=== PATIENT | male | born 1950 | race Caucasian/White ===

== ENCOUNTER → 2023-05-08 | Outpatient (CLI) | payer MEDICARE | END | disposition home or self-care (01) | LOC: RAH 16:11 | PROVIDERS: ATTEND Internal Medicine | DX: Z01.818 Encounter for other preprocedural examination (principal) | CPT/HCPCS: 71047 ==

== ENCOUNTER 2023-08-12 05:00 | Observation (INO) | payer MEDICARE ==
[2023-08-08 11:17] LABS: BASOPHILS # (AUTO) 0.05 K/uL (0.00-0.20); BASOPHILS % (AUTO) 0.8 % (0.0-5.0); EOSINOPHILS # (AUTO) 0.48 K/uL (0.00-0.70); EOSINOPHILS % (AUTO) 7.8 % (0.0-8.0); HEMATOCRIT 43.1 % (42-54); IMMATURE GRANULOCYTE ABSOLUTE 0.02 K/uL (0-1); LYMPHOCYTES # (AUTO) 1.3 K/uL (1.0-4.8); LYMPHOCYTES % (AUTO) 20.2 % (21.0-51.0); MEAN CORPUSCULAR HGB CONC 32.5 g/dL (32.0-36.0); MEAN CORPUSCULAR VOLUME 89.4 fL (79-99); MONOCYTES # (AUTO) 0.6 K/uL (0.1-1.0); MONOCYTES % (AUTO) 10.4 % (3.0-13.0); NEUTROPHILS # (AUTO) 3.7 K/uL (1.8-7.7); NEUTROPHILS % (AUTO) 60.5 % (40.0-77.0); PLATELET COUNT (AUTO) 270 K/uL (130-400); RED BLOOD CELL COUNT(AUTO) 4.82 MIL/uL (4.50-6.20); RED CELL DISTRIBUTION WIDTH 13.2 % (11.0-15.5); WHITE BLOOD COUNT (AUTO) 6.2 K/uL (4.8-10.8)
[2023-08-08 11:22] VITALS: BP 166/89; PULSE 71; RESP 18
[2023-08-08 11:33] LABS: ALBUMIN 3.5 g/dL (3.5-5.0); BILIRUBIN,TOTAL 0.5 mg/dL (0.2-1.0); CREATININE 1.2 mg/dL (0.5-1.3); POTASSIUM 4.3 mmol/L (3.5-5.1); TOTAL PROTEIN, SERUM 7.1 g/dL (6.0-8.3)
[2023-08-08 11:41] LABS: INR <= 0.93 (0.85-1.15); PROTHROMBIN TIME 10.6 SEC (9.6-11.6)
[2023-08-08 11:42] LABS: PARTIAL THROMBOPLASTIN TIME 30.2 SEC (26.3-35.5)
[~2023-08-12] VITALS: Ht 188 cm; Wt 97.3 kg
[2023-08-12] VITALS (21 sets, daily range): BP systolic 121–156; BP diastolic 68–87; PULSE 63–102; RESP 12–26; O2SAT 96
[~2023-08-12 05:00] MED LIST: AEC81 PO; BUPR-49 PO; FINA5TAB41 PO; LOSA50TA64 PO; TAMS-1 PO
[2023-08-12] MEDS ORDERED: FENTANYL CITRATE PF 50 MCG/1 ML 2ML VIAL ONE ×2 (07:45→08:45)
[2023-08-12] MEDS ORDERED: MIDAZOLAM HCL 1 MG/ML 2ML VIAL ONE (07:45)
[2023-08-12] MEDS ORDERED: DEXAMETHASONE SOD PHOSPHATE 10MG/ML 1ML VIAL ONE (07:46)
[2023-08-12] MEDS ORDERED: LIDOCAINE PF 100MG/5ML (2%) SYRINGE 5ML ONE (07:46)
[2023-08-12] MEDS ORDERED: ONDANSETRON 4MG INJ ONE (07:46)
[2023-08-12] MEDS: LACTATED RINGERS 1000ML 1,000 ML IV ONE (08:02)
[2023-08-12] MEDS ORDERED: PROPOFOL 10 MG/ML 20ML VIAL IV ONE (08:26)
[2023-08-12] MEDS ORDERED: ROCURONIUM BROMIDE 10MG/1ML 5ML VL ONE ×2 (08:26→09:23)
[2023-08-12] MEDS: CLINDAMYCIN IVPB 900MG/50ML 50 ML IV ONE (08:30)
[2023-08-12] MEDS: TRANEXAMIC ACID 1000MG/10ML ONE ×2 (08:40→10:31)
[2023-08-12] MEDS ORDERED: PHENYLEPHRINE HCL 10 MG/ML 1ML VIAL IV ONE (08:50)
[2023-08-12] MEDS: GENTAMICIN SULFATE 80 MG/2 ML VIAL ONE (09:25)
[2023-08-12] MEDS: 0.9%NACL 48.45 ML, ROPIVACAINE 0.5% 49.25ML, EPINEPH 0.5MG KETOROLAC 30MG,CLONIDINE 80MCG IV PRN (09:25)
[2023-08-12] MEDS: CEFAZOLIN SODIUM 1 GM VIAL ONE (09:25)
[2023-08-12] MEDS ORDERED: NEOSTIGMINE METHYLSULFATE 1MG/ML IV ONE (10:35)
[2023-08-12] MEDS ORDERED: GLYCOPYRROLATE 0.2 MG/ML 5 ML VIAL ONE (10:35)
[2023-08-12] MEDS: MEPERIDINE-PF 25 MG/ML SYG ONE ×2 (11:34→11:45)
[2023-08-12] MEDS ORDERED: MAG/ALUM/SIMETH 30 ML UDCUP PO PRN (13:00)
[2023-08-12] MEDS: 0.9%NACL 1000ML 1,000 ML IV SCH (13:00)
[2023-08-12] MEDS ORDERED: ACETAMINOPHEN 325 MG TAB PO SCH (13:00)
[2023-08-12] MEDS ORDERED: DIPHENHYDRAMINE HCL 25 MG CAPSULE PO PRN (13:00)
[2023-08-12] MEDS ORDERED: DIPHENHYDRAMINE HCL 25 MG CAPSULE PO SCH (13:00)
[2023-08-12] MEDS ORDERED: ONDANSETRON 4MG INJ IVP PRN (13:00)
[2023-08-12] MEDS ORDERED: DiphenhydrAMINE HCL 50 MG/ML VIAL IM PRN (13:00)
[2023-08-12] MEDS ORDERED: DIPHENOXYLATE HCL/ATROPINE 2.5/0.025 MG TAB PO PRN (13:00)
[2023-08-12] MEDS: CLINDAMYCIN IVPB 900MG/50ML IV SCH (13:00)
[2023-08-12] MEDS ORDERED: BENZOCAINE/MENTH/CETYLPYRD CL 1 EACH LOZENGE MM PRN (13:00)
[2023-08-12] MEDS ORDERED: LACTULOSE 20 GM/30 ML UDCUP PO PRN (13:00)
[2023-08-12] MEDS ORDERED: WARFARIN SODIUM 7.5 MG TAB PO SCH (13:00)
[2023-08-12] MEDS ORDERED: ACETAMINOPHEN 325 MG TAB PO PRN ×2 (13:00)
[2023-08-12] MEDS: CLINDAMYCIN IVPB 900MG/50ML 50 ML IV SCH (15:38)
[2023-08-12] MEDS: HYDROMORPH /0.9% NACL/PF PCA 50 ML IV PRN (15:40)
[2023-08-12] MEDS: LOSARTAN 50 MG TABLET PO SCH (21:37)
[2023-08-12] MEDS: TAMSULOSIN HCL 0.4 MG CAP.ER.24H PO SCH (21:37)
[2023-08-12] MEDS: BUPROPION HCL 150 MG TABLET.SA PO SCH (21:37)
[2023-08-12] MEDS: FINASTERIDE 5 MG TABLET PO SCH (21:37)
[2023-08-12] MEDS: WARFARIN SODIUM 7.5 MG TAB PO SCH (21:38)
[2023-08-13 04:07] VITALS: BP 127/64; PULSE 96; RESP 18
[2023-08-13 04:18] LABS: HEMATOCRIT 33.2 % (42-54); MEAN CORPUSCULAR HEMOGLOBIN 28.2 pg (27.0-33.0); MEAN CORPUSCULAR HGB CONC 32.5 g/dL (32.0-36.0); MEAN CORPUSCULAR VOLUME 86.7 fL (79-99); RED BLOOD CELL COUNT(AUTO) 3.83 MIL/uL (4.50-6.20); RED CELL DISTRIBUTION WIDTH 13.6 % (11.0-15.5); WHITE BLOOD COUNT (AUTO) 12.6 K/uL (4.8-10.8)
[2023-08-13 04:27] LABS: INR 1.06 (0.85-1.15); PROTHROMBIN TIME 12.4 SEC (9.6-11.6)
[2023-08-13 05:08] LABS: CREATININE 1.4 mg/dL (0.5-1.3); POTASSIUM 4.3 mmol/L (3.5-5.1)
[2023-08-13 07:21] LABS: BASOPHILS # (AUTO) 0.02 K/uL (0.00-0.20); BASOPHILS % (AUTO) 0.2 % (0.0-5.0); EOSINOPHILS # (AUTO) 0.02 K/uL (0.00-0.70); EOSINOPHILS % (AUTO) 0.2 % (0.0-8.0); HEMATOCRIT 33.5 % (42-54); IMMATURE GRANULOCYTE ABSOLUTE 0.06 K/uL (0-1); LYMPHOCYTES # (AUTO) 1.1 K/uL (1.0-4.8); LYMPHOCYTES % (AUTO) 10.5 % (21.0-51.0); MEAN CORPUSCULAR HEMOGLOBIN 28.6 pg (27.0-33.0); MEAN CORPUSCULAR HGB CONC 33.4 g/dL (32.0-36.0); MEAN CORPUSCULAR VOLUME 85.5 fL (79-99); MONOCYTES # (AUTO) 1.1 K/uL (0.1-1.0); MONOCYTES % (AUTO) 10.1 % (3.0-13.0); NEUTROPHILS # (AUTO) 8.5 K/uL (1.8-7.7); NEUTROPHILS % (AUTO) 78.4 % (40.0-77.0); PLATELET COUNT (AUTO) 246 K/uL (130-400); RED BLOOD CELL COUNT(AUTO) 3.92 MIL/uL (4.50-6.20); RED CELL DISTRIBUTION WIDTH 13.5 % (11.0-15.5); WHITE BLOOD COUNT (AUTO) 10.9 K/uL (4.8-10.8)
[2023-08-13 07:30] LABS: HEMOGLOBIN A1C 5.7 % (4.0-6.0)
[2023-08-13 07:37] LABS: ALBUMIN 2.8 g/dL (3.5-5.0); BILIRUBIN,TOTAL 0.4 mg/dL (0.2-1.0); CREATININE 1.3 mg/dL (0.5-1.3); MAGNESIUM 1.5 mg/dL (1.80-2.40); TOTAL PROTEIN, SERUM 5.9 g/dL (6.0-8.3)
[2023-08-13 08:00] VITALS: BP 136/63; PULSE 86; RESP 19
[2023-08-13] MEDS: FAMOTIDINE 20MG TAB PO SCH (09:02)
[2023-08-13 12:00] VITALS: BP 141/71; PULSE 78; RESP 18
[2023-08-13] MEDS: MAGNESIUM 2GM PREMIX 50ML 50 ML IV SCH (15:11)
[2023-08-13] MEDS: WARFARIN SODIUM 5 MG TAB PO ONE (16:18)
[2023-08-13] MEDS: TRAMADOL HCL 50 MG TABLET PO PRN (16:18)
== END 2023-08-13 16:30 | disposition home or self-care (01) ==
LOC: DAH 05:00 → DAHIP 05:01 → 4BH 12:30
PROVIDERS: ADMIT Orthopaedic Surgery; ATTEND Orthopaedic Surgery
DX: M17.11 Unilateral primary osteoarthritis, right knee (principal); F41.9 Anxiety disorder, unspecified; I12.9 Hypertensive chronic kidney disease with stage 1 through stage 4 chronic kidney disease, or unspecified chronic kidney disease; N18.2 Chronic kidney disease, stage 2 (mild); N40.0 Benign prostatic hyperplasia without lower urinary tract symptoms; D64.9 Anemia, unspecified; N17.9 Acute kidney failure, unspecified; K21.9 Gastro-esophageal reflux disease without esophagitis; I25.10 Atherosclerotic heart disease of native coronary artery without angina pectoris; Z88.0 Allergy status to penicillin; Z88.5 Allergy status to narcotic agent; Z86.2 Personal history of diseases of the blood and blood-forming organs and certain disorders involving the immune mechanism
CPT/HCPCS: 80053 ×2; 85025 ×2; 85610 ×2; 85730; 36415 ×2; 71045; 93005; 87641; 27447; 96365; 96368; 97161; 97012; 97116 ×3; 97530 ×4; 96375; 83036; 83735; 85027; A6260; G0378 ×25; A4510; A4663; J7120 ×2; A4215 ×2; A4649 ×4; J3010 ×2; J0690; J3490 ×8; J1100; J2001; J1580; J2250; J2704; J2405; J2710; J2175 ×2; J2371; A6223; C1763 ×2; C1776; A4930; A5120; A4223; A4222; A4221; A6450; J7030; J3475; 80048